=== PATIENT | female | born 2000 | race African-American/Black ===

== ENCOUNTER 2018-01-06 03:22 | Inpatient (IN) | payer MEDICAID, OTHER ==
[2018-01-06] MEDS ORDERED: LACTATED RINGER'S 1000 ML INJ 1,000 ML IV PRN (03:37)
[2018-01-06] MEDS ORDERED: LACTATED RINGER'S 1000 ML INJ 1,000 ML IV SCH (03:37)
[2018-01-06] MEDS ORDERED: SODIUM CHLORID 0.9% 500 ML INJ 500 ML IV PRN (03:45)
[2018-01-06] MEDS ORDERED: MINERAL OIL 10 ML VIAL TOPICAL PRN (03:45)
[2018-01-06] MEDS ORDERED: ONDANSETRON HCL 4 MG/2 ML VIAL IV PUSH PRN (03:45)
[2018-01-06] MEDS ORDERED: OXYTOCIN 30 UNITS-500ML PREMIX 500 ML IV ONE (03:45)
[2018-01-06] MEDS ORDERED: LIDOCAINE HCL 1% 50 ML VIAL I-DERMAL PRN (03:45)
[2018-01-06] MEDS ORDERED: LIDOCAINE HCL 1% 50 ML VIAL INFIL PRN (03:45)
[2018-01-06] MEDS ORDERED: SODIUM CHLOR 0.9% 1000 ML INJ 1,000 ML IV PRN (03:57)
--- NOTE | 2018-01-06 04:06 | PD ---
HPI Chief Complaint ctxs Date Seen: Jan 06, 2018 Time Seen: 04:00 Travel History International Travel<30 Days: No Contact w/Intl Traveler<30Days: No Known Affected Area: No History of Present Illness HPI pt. is a @ ? 38 weeks presents w/ ctxs. pt. w/ minimal care, 1 visit, no labs drawn. pt. states began having ctxs since earlier this pm and have increased in freq and intensity. on present pt. 4/90/0/bulging membranes. pt. states had cervical check and cervix was 2 cm. Weeks Gestation: 38 Para: 1 : 2 History Past Medical History Medical History: Denies Significant Hx Obstetric History Obstetric History , x 1 Past Surgical History Surgical History: No Previous Surgery Family History Family History: Negative Social History Alcohol Use: No Tobacco Use: No Substance Abuse: No Allergies-Medications (Allergen,Severity, Reaction): Coded Allergies: No Known Allergies (Unverified , 01/06/18) Physical Exam Narrative GENERAL: Well-nourished, well-developed patient. SKIN: Warm and dry. HEAD: Normocephalic and atraumatic. EYES: No scleral icterus. No injection or drainage. ENT: No nasal drainage noted. Mucous membranes pink. Airway patent. NECK: Supple, trachea midline. No JVD. CARDIOVASCULAR: Regular rate and rhythm without murmurs, gallops, or rubs. RESPIRATORY: Breath sounds equal bilaterally. No accessory muscle use. BREASTS: Bilateral exam showed no masses , no retractions, no nipple discharge. ABDOMEN/GI: Abdomen soft, non-tender, bowel sounds present, no rebound, no guarding Gravid GENITOURINARY: External Genitalia: intact and normal in appearance Dilatation: 4 Effacement: 90 Station: 0 Presentation: cephalic Membranes: intact, bulging Uterine Contractions: q 5mins FHT's: Category: 1 Reactive: + Variability: mod EXTREMITIES: No cyanosis or edema. BACK: Nontender without obvious deformity. No CVA tenderness. NEUROLOGICAL: Awake and alert. Motor and sensory grossly within normal limits. Five out of 5 muscle strength in all muscle groups. Normal speech. Data Data Vital Signs Reviewed: Yes Orders Orders Admit To Inpatient (01/06/18 ) Code Status (01/06/18 03:37) Vital Signs (Adult) .Per protocol (01/06/18 03:37) Activity Oob Ad Swathi (01/06/18 03:37) Heart (01/06/18 03:37) Amnioinfusion (01/06/18 03:37) Urinary Catheter Management .ONCE (01/06/18 03:37) Diet Liquid (01/06/18 Breakfast) Lactated Ringer's 1000 Ml Inj (Lr 1000 M (01/06/18 03:37) Lactated Ringer's 1000 Ml Inj (Lr 1000 M (01/06/18 03:37) Sodium Chlorid 0.9% 500 Ml Inj (Ns 500 M (01/06/18 03:45) Sodium Chlor 0.9% 1000 Ml Inj (Ns 1000 M (01/06/18 03:57) Lidocaine 1% Inj (50 Ml) (Xylocaine 1% I (01/06/18 03:45) Ondansetron Inj (Zofran Inj) (01/06/18 03:45) Fentanyl Inj (Fentanyl Inj) (01/06/18 03:45) Fentanyl Inj (Fentanyl Inj) (01/06/18 03:45) Complete Blood Count With Diff (01/06/18 03:37) Hold Clot (01/06/18 03:37) Abo/Rh Blood Type (01/06/18 03:37) Urinalysis - C+S If Indicated (01/06/18 03:37) Drug Screen, Random Urine (01/06/18 03:37) Ob/Psych Drug Screen, Urine (01/06/18 03:37) No Care Spec Serology (01/06/18 03:37) Resp Oxygen Non Rebreathe Mask (01/06/18 ) ^ Epidural / Intrathecal Infus (01/06/18 03:37) Oxytocin 30 Units-500ml Premix (Pitocin (01/06/18 03:45) Lidocaine 1% Inj (50 Ml) (Xylocaine 1% I (01/06/18 03:45) Light Mineral Oil (Muri-Lube Oil) (01/06/18 03:45) Inpatient Certification (01/06/18 ) [facility] Medical Record Reviewed: Yes Plan pt. in active labor to be admitted. fentanyl vs epidural for analgesia. efm/ toco. Diagnosis Diagnosis: Primary Impression: Active labor Additional Impression: 38 weeks gestation of Ty Rosas Jr., MD Jan 06, 2018 04:06
[2018-01-06 04:19] LABS: AUTOMATED NEUTROPHIL # 7.8 TH/MM3 (1.8-7.7); BASOPHIL % 0.3 % (0.0-2.0); EOSINOPHIL # 0.1 TH/MM3 (0-0.4); EOSINOPHIL % 1.1 % (0.0-4.0); HEMOGLOBIN 10.4 GM/DL (11.6-15.3); LYMPH % 21.2 % (9.0-44.0); LYMPHOCYTE # 2.4 TH/MM3 (1.0-4.8); MEAN CELL VOLUME 79.2 FL (80.0-100.0); MEAN CORPUSCULAR HEMOGLOBIN 25.7 PG (27.0-34.0); MEAN CORPUSCULAR HGB CONC 32.5 % (32.0-36.0); MEAN PLATELET VOLUME 8.4 FL (7.0-11.0); MONO % 9.1 % (0.0-8.0); NEUT % 68.3 % (16.0-70.0); PLATELET COUNT 271 TH/MM3 (150-450); RED BLOOD COUNT 4.04 MIL/MM3 (4.00-5.30); RED CELL DISTRIBUTION WIDTH 15.3 % (11.6-17.2); WHITE BLOOD COUNT 11.4 TH/MM3 (4.0-11.0)
[2018-01-06] MEDS ORDERED: LIDOCAINE HCL 1% PF 30 ML VIAL ONE ×2 (04:34→05:31)
[2018-01-06] MEDS ORDERED: fentaNYL 2MCG-BUPIV 0.125% INJ 150 ML EPIDURAL ONE (04:34)
[2018-01-06 04:38] LABS: BACTERIA, URINE RARE /hpf; BILIRUBIN, URINE NEG (NEG); BLOOD, URINE NEG (NEG); GLUCOSE,URINE NEG (NEG); KETONE, URINE NEG (NEG); NITRITE,URINE NEG (NEG); SQUAMOUS EPITHELIAL CELL URINE 8 /hpf (0-5); URINE COLOR COLORLESS (YELLW/STRAW); URINE LEUKOCYTE ESTERASE LARGE (NEG)
[2018-01-06 05:19] LABS: BANDS 3 % (0-6); LYMPHOCYTES 20 % (9-44); METAMYELOCYTES 1 % (0-1); MONOCYTES 5 % (0-8); MYELOCYTES 1 % (0-0); NEUTROPHIL # MANUAL DIFF 8.4 TH/MM3 (1.8-7.7); POLYS (SEG NEUTROPHILS) 69 % (16-70)
[2018-01-06] MEDS ORDERED: LIDOCAINE 1.5%/EPINEPHrine 1:200,000 PF 5 ML AMP ONE (05:19)
[2018-01-06] MEDS ORDERED: NO SYSTEM NARCOTICS PRN (05:45)
[2018-01-06] MEDS ORDERED: DO NOT ADMINISTER ANTICOAGULANTS PRN (05:45)
[2018-01-06] MEDS ORDERED: fentaNYL 2MCG-BUPIV 0.125% 150 ML EPIDURAL PRN (05:45)
[2018-01-06] MEDS ORDERED: ePHEDrine/NS 25 MG/5 ML SYRINGE IV PUSH PRN (05:45)
--- NOTE | 2018-01-06 07:55 | HHI.HP ---
History & Physical H&P HPI Chief Complaint ctxs Date Seen: Jan 06, 2018 Time Seen: 04:00 Travel History International Travel<30 Days: No Contact w/Intl Traveler<30Days: No Known Affected Area: No History of Present Illness HPI pt. is a @ ? 38 weeks presents w/ ctxs. pt. w/ minimal care, 1 visit, no labs drawn. pt. states began having ctxs since earlier this pm and have increased in freq and intensity. on present pt. 4/90/0/bulging membranes. pt. states had cervical check and cervix was 2 cm. Weeks Gestation: 38 Para: 1 : 2 History (Limited) History Past Medical History Medical History: Denies Significant Hx Obstetric History Obstetric History , x 1 Past Surgical History Surgical History: No Previous Surgery Family History Family History: Negative Social History Alcohol Use: No Tobacco Use: No Substance Abuse: No Allergies-Medications Allergies-Medications (Allergen,Severity, Reaction): Coded Allergies: No Known Allergies (Unverified , 01/06/18) ROS Review of Systems Physical Exam Physical Exam Narrative GENERAL: Well-nourished, well-developed patient. SKIN: Warm and dry. HEAD: Normocephalic and atraumatic. EYES: No scleral icterus. No injection or drainage. ENT: No nasal drainage noted. Mucous membranes pink. Airway patent. NECK: Supple, trachea midline. No JVD. CARDIOVASCULAR: Regular rate and rhythm without murmurs, gallops, or rubs. RESPIRATORY: Breath sounds equal bilaterally. No accessory muscle use. BREASTS: Bilateral exam showed no masses , no retractions, no nipple discharge. ABDOMEN/GI: Abdomen soft, non-tender, bowel sounds present, no rebound, no guarding Gravid GENITOURINARY: External Genitalia: intact and normal in appearance Dilatation: 4 Effacement: 90 Station: 0 Presentation: cephalic Membranes: intact, bulging Uterine Contractions: q 5mins FHT's: Category: 1 Reactive: + Variability: mod EXTREMITIES: No cyanosis or edema. BACK: Nontender without obvious deformity. No CVA tenderness. NEUROLOGICAL: Awake and alert. Motor and sensory grossly within normal limits. Five out of 5 muscle strength in all muscle groups. Normal speech. Data Data Data Vital Signs Reviewed: Yes Orders Orders Admit To Inpatient (01/06/18 ) Code Status (6/1/18 03:37) Vital Signs (Adult) .Per protocol (01/06/18 03:37) Activity Oob Ad Swathi (01/06/18 03:37) Heart (01/06/18 03:37) Amnioinfusion (01/06/18 03:37) Urinary Catheter Management .ONCE (01/06/18 03:37) Diet Liquid (01/06/18 Breakfast) Lactated Ringer's 1000 Ml Inj (Lr 1000 M (01/06/18 03:37) Lactated Ringer's 1000 Ml Inj (Lr 1000 M (01/06/18 03:37) Sodium Chlorid 0.9% 500 Ml Inj (Ns 500 M (01/06/18 03:45) Sodium Chlor 0.9% 1000 Ml Inj (Ns 1000 M (01/06/18 03:57) Lidocaine 1% Inj (50 Ml) (Xylocaine 1% I (01/06/18 03:45) Ondansetron Inj (Zofran Inj) (01/06/18 03:45) Fentanyl Inj (Fentanyl Inj) (01/06/18 03:45) Fentanyl Inj (Fentanyl Inj) (01/06/18 03:45) Complete Blood Count With Diff (01/06/18 03:37) Hold Clot (01/06/18 03:37) Abo/Rh Blood Type (01/06/18 03:37) Urinalysis - C+S If Indicated (01/06/18 03:37) Drug Screen, Random Urine (01/06/18 03:37) Ob/Psych Drug Screen, Urine (01/06/18 03:37) No Care Spec Serology (01/06/18 03:37) Resp Oxygen Non Rebreathe Mask (01/06/18 ) ^ Epidural / Intrathecal Infus (01/06/18 03:37) Oxytocin 30 Units-500ml Premix (Pitocin (01/06/18 03:45) Lidocaine 1% Inj (50 Ml) (Xylocaine 1% I (01/06/18 03:45) Light Mineral Oil (Muri-Lube Oil) (01/06/18 03:45) Inpatient Certification (01/06/18 ) [facility] MDM Medical Record Reviewed: Yes Plan pt. in active labor to be admitted. fentanyl vs epidural for analgesia. efm/ toco. Diagnosis Diagnosis: Primary Impression: Active labor Additional Impression: 38 weeks gestation of Ty Rosas Jr., MD Jan 06, 2018 07:54
--- NOTE | 2018-01-06 09:43 | PD.LABORPN ---
Subjective Subjective Patient seen and examined with Dr. Rosas. Discussed AROM with patient for augmentation of labor, patient expressed understanding and agreed to plan. Patient otherwise denied any complaints. Objective Vital Signs Vital Signs Date Time Temp Pulse Resp B/P (MAP) Pulse Ox O2 Delivery O2 Flow Rate FiO2 01/06/18 06:53 18 Objective Pelvic Exam: Cervix: Midposition Dilatation: 9 cm Effacement: 100% Station: +1 Presentation: Vertex Membranes: Ruptured s/p AROM Uterine Contractions: q1-3 minutes FHT's: Category: I Baseline: 130s Reactive: +accels Variability: moderate Decels: none noted Weeks Gestation: 38 Assessment/Plan Assessment and Plan 17 year old at 38 weeks gestation admitted to L&D in active labor. - Category I tracing - Contractions q1-3 minutes - Cervix: 9/100%/+1, vertex - Ruptured s/p AROM, clear fluids - Epidural in place - Anticipate sdw Allen Thurston MD R2 Jan 06, 2018 09:43
--- NOTE | 2018-01-06 10:35 | PD.OB.DELI ---
Weeks gestation: 38 Anesthesia: Epidural Episiotomy: None Vaginal Delivery: Normal, Spontaneous Presentation: Occiput anterior Nuchal Cord: None Delayed cord clamping (45 sec): Yes : Male Delivery date: Jan 06, 2018 Delivery time: 10:17 One Minute : 8 Five Minute : 9 Weight: 3045 grams Placenta: Spontaneous delivery, Intact Laceration: No lacerations Estimated blood loss: < 200 cc Additional Information 17 year old now delivered via at 38 weeks gestation over an intact perineum. Apgars 8/9 at 1/5 minutes respectively. Placenta delivered spontaneously and intact. No lacerations. EBL < 200 cc. Mother stated she is giving her baby up for adoption and has a family to adopt the child. (Allen Rene MD R2) Additional Information Patient seen and evaluated with resident under direct supervision, agree with assessment and plan. (Darryn Estrada MD) Allen Rene MD R2 Jan 06, 2018 10:35 Darryn Estrada MD Jan 06, 2018 14:24
[2018-01-06] MEDS ORDERED: SODIUM CHLORIDE 0.9% FLUSH 10 ML FLUSH IV FLUSH PRN (10:45)
[2018-01-06] MEDS ORDERED: OXYTOCIN 30 UNITS-500ML PREMIX 500 ML IV SCH (10:45)
[2018-01-06] MEDS ORDERED: WITCH HAZEL 50%/GLYCERIN 12.5% 40 PAD JAR TOPICAL PRN (10:45)
[2018-01-06] MEDS ORDERED: DOCUSATE SODIUM 50 MG/SENNA 8.6 MG TAB PO PRN (10:45)
[2018-01-06] MEDS ORDERED: BENZOCAINE 20% TOPICAL SPRAY 60 ML CAN TOPICAL PRN (10:45)
[2018-01-06] MEDS ORDERED: ALUMINUM/MAGNESIUM/SIMETH 30 ML CUP PO PRN (10:45)
[2018-01-06] MEDS ORDERED: SODIUM CHLORIDE 0.9% FLUSH 10 ML FLUSH IV FLUSH SCH (10:45)
[2018-01-06] MEDS ORDERED: oxyCODONE/ACETAMINOPHEN 5 MG/325 MG TAB PO PRN ×2 (10:45)
[2018-01-06] MEDS ORDERED: ONDANSETRON ODT 4 MG TAB PO PRN (10:45)
[2018-01-06] MEDS ORDERED: DIPHTH/TETANUS/ACEL PERTUSSIS (BOOSTER) 0.5 ML VIAL/PFS IM ONE (16:00)
[2018-01-06] MEDS ORDERED: MEASLES, MUMPS, RUBELLA VACCINE 0.5 ML VIAL SQ ONE (16:00)
[2018-01-06] MEDS: ACETAMINOPHEN 325 MG TAB PO PRN (20:53)
[2018-01-06] MEDS: IBUPROFEN 800 MG TAB PO PRN (20:53)
[2018-01-06] MEDS ORDERED: ZOLPIDEM TARTRATE 5 MG TAB PO PRN (21:00)
[2018-01-06 21:20] VITALS: BP 105/57; PULSE 86; RESP 17; TEMP 98.2
[2018-01-07] MEDS: ACETAMINOPHEN 325 MG TAB PO PRN (02:47)
[2018-01-07] MEDS: IBUPROFEN 800 MG TAB PO PRN (08:04)
--- NOTE | 2018-01-07 08:19 | HHI.OB ---
Subjective Post Day: 1 Remarks Patient seen and examined this morning. AFVSS overnight. day #1. Patient states her pain has been well-controlled. Decreased lochia. Denies dysuria. No breast tenderness. Appetite good. No nausea or vomiting. Ambulating well. Denies calf pain, shortness of breath, or cough. She otherwise has no other complaints or concerns this morning. (Allen Rene MD R2) Remarks Patient seen and evaluated with resident under direct supervision, agree with assessment and plan. (Darryn Estrada MD) Objective Vitals/I&O Vital Signs Date Time Temp Pulse Resp B/P (MAP) Pulse Ox O2 Delivery O2 Flow Rate FiO2 01/06/18 21:20 98.2 86 17 105/57 (73) Objective Remarks GENERAL: Well-nourished, well-developed patient. CARDIOVASCULAR: Regular rate and rhythm without murmurs, gallops, or rubs. RESPIRATORY: Breath sounds equal bilaterally. No accessory muscle use. ABDOMEN/GI: Abdomen soft, non-tender. Fundus: Firm, non-tender at umbilicus. GENITOURINARY: Light to moderate bleeding. EXTREMITIES: No cyanosis or edema, non-tender, without signs of DVT. Medications and IVs Current Medications Medications (Trade) Dose Ordered Sig/Karen Route Start Time Stop Time Status Last Admin Lactated Ringer's 1,000 ml @ 3,000 mls/hr Q20M PRN IV 01/06/18 03:37 01/06/18 06:51 Sodium Chloride 500 ml @ 1,000 mls/hr ONCE PRN IV 01/06/18 03:45 Sodium Chloride 1,000 ml @ 100 mls/hr Q10H PRN IV 01/06/18 03:57 (Xylocaine 1% Inj (50 ml)) 0.1 ml UNSCH X1 PRN I-DERMAL 01/06/18 03:45 01/09/18 03:44 (Xylocaine 1% Inj (50 ml)) 10 ml UNSCH X1 PRN INFIL 01/06/18 03:45 01/08/18 03:44 (Muri-Lube Oil) 10 ml UNSCH PRN TOPICAL 01/06/18 03:45 Fentanyl/ Bupivacaine/ Sodium Chlor 150 ml @ 0 mls/hr TITRATE PRN EPIDURAL 01/06/18 05:45 01/06/18 06:53 (NS Flush) 2 ml BID IV FLUSH 01/06/18 10:45 (NS Flush) 2 ml UNSCH PRN IV FLUSH 01/06/18 10:45 (Tylenol) 650 mg Q4H PRN PO 01/06/18 10:45 01/07/18 02:47 (Motrin) 800 mg Q8H PRN PO 01/06/18 10:45 01/07/18 08:04 (Percocet 5-325 Mg) 1 tab Q4H PRN PO 01/06/18 10:45 (Percocet 5-325 Mg) 2 tab Q4H PRN PO 01/06/18 10:45 (Americaine 20% Top Spr) 1 spray Q4H PRN TOPICAL 01/06/18 10:45 (Tucks Pads) 1 applic QID PRN TOPICAL 01/06/18 10:45 (Sandhya-Colace) 2 tab Q12H PRN PO 01/06/18 10:45 01/06/18 20:52 (Ambien) 5 mg HS PRN PO 01/06/18 21:00 (Mag-Al Plus Susp Liq) 15 ml Q8H PRN PO 01/06/18 10:45 (Zofran Odt) 4 mg Q6H PRN PO 01/06/18 10:45 (Allen Rene MD R2) Assessment/Plan Problem List: (1) care following vaginal delivery ICD Codes: Z39.2 - Encounter for routine follow-up Assessment and Plan 17 year old PPD#1. 1. Care - AFVSS - Encouraged OOB, as tolerated - Motrin prn pain - Advised pelvic rest x 6 weeks - Contraception: Discussed with patient this morning, patient desiring Depo- Provera - Will f/u with OB provider in 6 weeks dw OB hospitalist Discharge Planning Stable for discharge home today or tomorrow pending stable clinical course (Allen Rene MD R2) Allen Rene MD R2 Jan 07, 2018 08:19 Darryn Estrada MD Jan 08, 2018 16:48
[2018-01-07] MEDS ORDERED: IBUP1TAB7 PO (08:20)
[2018-01-07] MEDS ORDERED: PERI PO (08:20)
--- NOTE | 2018-01-07 08:20 | HHI.DCPOC ---
Discharge Care Plan Diagnosis: (1) care following vaginal delivery Report Symptoms to Your Doctor -Temperature above 100.5 degrees -Redness, of incision or excessive or foul smelling drainage -Unusual pain or calf pain -Increased vaginal bleeding -Painful or difficulty urinating -Feelings of extreme sadness or anxiety after 2 weeks Goals to Promote Your Health * To prevent worsening of your condition and complications * To maintain your health at the optimal level Directions to Meet Your Goals Take your medications as prescribed Follow your dietary instruction Follow activity as directed Ensure plenty of rest for recovery Drink fluids for hydration Keep your appointments as scheduled Take your immunizations and boosters as scheduled If your symptoms worsen call your PCP, if no PCP go to Urgent Care Center or Emergency Room Smoking is Dangerous to Your Health. Avoid second hand smoke Call the 24-hour crisis hotline for domestic abuse at Allen Rene MD R2 Jan 07, 2018 08:19
[2018-01-07] MEDS ORDERED: medroxyPROGESTERone ACETATE SUSP 150 MG/ML SYRINGE IM ONE (08:30)
== END 2018-01-07 20:40 | disposition home or self-care (01) | DRG 775 ==
LOC: HOBED 03:22 → H2EA 04:17 → H1EA 12:56
PROVIDERS: ADMIT Obstetrics & Gynecology; ATTEND Obstetrics & Gynecology
PROC: 10E0XZZ Delivery of Products of Conception, External Approach (ICD-10-PCS; principal; 2018-01-06)
PROC: 10907ZC Drainage of Amniotic Fluid, Therapeutic from Products of Conception, Via Natural or Artificial Opening (ICD-10-PCS; 2018-01-06)
DX: O80 Encounter for full-term uncomplicated delivery (principal); Z37.0 Single live birth; Z3A.38 38 weeks gestation of pregnancy
CPT/HCPCS: 59025; 80074; 80307; 81001; 85007; 85027; 86592; 86762; 86900; 86901; 87389; 90715; G0475; G0481; J1050; J7120